=== PATIENT | male | born 1965 | race African-American/Black ===

== ENCOUNTER 2020-05-08 14:39 | Observation (INO) ==
[2020-05-08 15:16] LABS: Basophils % 0.3 % (0.0-0.8); Eosinophils # 0.3 10*3/uL (0.0-0.87); Eosinophils % 1.9 % (0.00-10.9); Hematocrit 39.3 VOL% (42.0-52.0); Hemoglobin 13.4 GM/DL (14.0-18.0); Immature Granulocytes % 0.4 %; Immature Granulocytes Absolute 0.06 #; Lymphocytes # 3.8 10*3/uL (1.4-4.0); Lymphocytes % 24.3 % (21.2-54.2); Mean Corpuscular HGB Conc 34.1 GM/DL (32-36); Mean Corpuscular Volume 97.3 FL (87-102); Mean Platelet Volume 10.4 FL (9.6-12.0); Monocytes % 6.3 % (1.7-12.7); Neutrophils % 66.8 % (38.7-73.9); Platelet Count 251 T/CUMM (130-400); Red Blood Count 4.04 MC/CUMM (3.8-5.5); Red Cell Distribution Width 12.1 % (9.3-17.3); White Blood Count 15.8 T/CUMM (4-12)
[2020-05-08 15:28] LABS: Albumin 3.7 G/DL (3.4-5.0); Bilirubin,Total 0.6 MG/DL (0.2-1.0); Calcium 9.3 MG/DL (8.5-10.1); Osmolality,Calculated 276.7 MOS/KG (273-304); Total Protein 7.1 G/DL (6.4-8.3)
[2020-05-08] MEDS ORDERED: ASPIRIN 325 MG TABLET PO STA (16:41)
[2020-05-08] MEDS ORDERED: METOPROLOL TARTRATE 25 MG TABLET PO STA (16:41)
[2020-05-08] MEDS ORDERED: ENOXAPARIN 100 MG/ML SYRINGE SUBCUT STA (16:41)
[2020-05-08] MEDS ORDERED: NITROGLYCERIN SL 0.4 MG TABLET SL PRN (16:41)
[2020-05-08] MEDS ORDERED: MAGNESIUM SULF RIDER 2 GM in PREMIX 1 EACH IV PRN (16:43)
[2020-05-08] MEDS ORDERED: MAGNESIUM SULF RIDER 4 GM in PREMIX 1 EACH IV PRN (16:43)
[2020-05-08] MEDS ORDERED: ONDANSETRON 4 MG/2 ML VIAL IV PRN (16:43)
[2020-05-08] MEDS ORDERED: ENOXAPARIN 30 MG/0.3 ML SYRINGE ONE (16:55)
[2020-05-08] MEDS ORDERED: MORPHINE 4 MG/1 ML VIAL IV PRN (21:12)
[2020-05-08] MEDS ORDERED: MELATONIN 3 MG TABLET PO PRN (21:13)
[2020-05-08] MEDS ORDERED: ATORVASTATIN 20 MG TABLET PO SCH (22:01)
[2020-05-08] MEDS ORDERED: GLUCAGON 1 MG VIAL IM PRN (22:40)
[2020-05-08] MEDS ORDERED: DEXTROSE 50% 25 GM/50 ML VIAL IV PRN (22:40)
[2020-05-08] MEDS ORDERED: PANTOPRAZOLE 40 MG TABLET PO ONE (22:41)
[2020-05-08] MEDS ORDERED: ALUMINUM/MAGNES/SIMETH MAX STR 30 ML UDCUP PO PRN (22:42)
[2020-05-08] MEDS: GABAPENTIN 100 MG CAPSULE PO SCH (22:50)
[2020-05-08] MEDS ORDERED: SODIUM CHLORIDE 0.9% 1,000 ML IV SCH (23:00)
[2020-05-09] MEDS: METOPROLOL TARTRATE 25 MG TABLET PO SCH ×3 (06:05→20:59)
[2020-05-09] MEDS ORDERED: ENOXAPARIN 60 MG/0.6 ML SYRINGE SUBCUT ONE (07:00)
[2020-05-09] MEDS: INSULIN REGULAR 100 UNIT/ML SUBCUT SCH ×4 (08:19→21:10)
[2020-05-09] MEDS ORDERED: ASPIRIN CHEW 81 MG TABLET PO SCH (09:00)
[2020-05-09] MEDS: GABAPENTIN 100 MG CAPSULE PO SCH ×4 (11:33→21:34)
[2020-05-09] MEDS: PANTOPRAZOLE 40 MG TABLET PO SCH (11:57)
[2020-05-09] MEDS ORDERED: DIAZEPAM 5 MG TABLET PO ONE (12:06)
[2020-05-09] MEDS ORDERED: diphenhydrAMINE CAP 25 MG CAPSULE PO ONE (12:06)
[2020-05-09] MEDS ORDERED: LIDOCAINE 1% 20 ML VIAL ONE (12:51)
[2020-05-09] MEDS ORDERED: HEPARIN/NACL 0.9% 2 UNITS/ML 1,000 ML IV ONE (12:51)
[2020-05-09] MEDS ORDERED: MIDAZOLAM 2 MG/2 ML VIAL ONE ×2 (13:01→13:44)
[2020-05-09] MEDS ORDERED: fentaNYL 100 MCG/2 ML VIAL ONE (13:01)
[2020-05-09] MEDS ORDERED: HEPARIN/NACL 0.9% 2 UNITS/ML 500 ML IV ONE (13:04)
[2020-05-09] MEDS ORDERED: ENOXAPARIN 60 MG/0.6 ML SYRINGE ONE (13:26)
[2020-05-09] MEDS ORDERED: TICAGRELOR 90 MG TABLET ONE (13:28)
[2020-05-09] MEDS ORDERED: NITROGLYCERIN DRIP 50 MG/250 ML BOTTLE IV ONE (13:29)
[2020-05-09] MEDS ORDERED: SODIUM CHLORIDE 0.9% 1,000 ML IV SCH (15:00)
[2020-05-09] MEDS: TICAGRELOR 90 MG TABLET PO SCH (20:59)
[2020-05-09] MEDS ORDERED: NICOTINE 14 MG/24 HR PATCH TRANSDERM PRN (21:18)
[2020-05-09] MEDS ORDERED: ALPRAZolam 0.25 MG TABLET PO ONE (21:28)
[2020-05-09] MEDS ORDERED: LABETALOL 20 MG/4 ML SYRINGE IV PRN (22:00)
[2020-05-10 07:46] LABS: Basophils % 0.2 % (0.0-0.8); Eosinophils # 0.1 10*3/uL (0.0-0.87); Hematocrit 39.3 VOL% (42.0-52.0); Hemoglobin 13.6 GM/DL (14.0-18.0); Immature Granulocytes % 0.4 %; Immature Granulocytes Absolute 0.05 #; Lymphocytes # 2.5 10*3/uL (1.4-4.0); Lymphocytes % 18.2 % (21.2-54.2); Mean Corpuscular HGB Conc 34.6 GM/DL (32-36); Mean Platelet Volume 10.4 FL (9.6-12.0); Monocytes % 7.6 % (1.7-12.7); Neutrophils % 72.6 % (38.7-73.9); Platelet Count 236 T/CUMM (130-400); Red Blood Count 4.05 MC/CUMM (3.8-5.5); Red Cell Distribution Width 12.1 % (9.3-17.3); White Blood Count 13.9 T/CUMM (4-12)
[2020-05-10] MEDS: TICAGRELOR 90 MG TABLET PO SCH (08:02)
[2020-05-10 08:03] VITALS: BP 151/82
[2020-05-10 08:03] LABS: Calcium 9.1 MG/DL (8.5-10.1); Osmolality,Calculated 271.8 MOS/KG (273-304)
[2020-05-10] MEDS: METOPROLOL TARTRATE 25 MG TABLET PO SCH (08:03)
[2020-05-10] MEDS: PANTOPRAZOLE 40 MG TABLET PO SCH (08:03)
[2020-05-10] MEDS: GABAPENTIN 100 MG CAPSULE PO SCH (08:03)
[2020-05-10] MEDS: INSULIN REGULAR 100 UNIT/ML SUBCUT SCH (08:07)
[2020-05-10 08:18] LABS: Troponin I 0.243 NG/ML (0.00-0.045)
[2020-05-10] MEDS ORDERED: ASPIRIN EC 81 MG TABLET PO SCH (09:00)
[2020-05-10] MEDS ORDERED: ATORVASTATIN 40 MG TABLET PO SCH ×2 (09:00)
== END 2020-05-10 08:53 | disposition home or self-care (01) ==
LOC: N.EDINP 14:39 → N.ED 14:39 → N.EDINP 17:43 → N.TELEN 17:45
PROVIDERS: ADMIT Internal Medicine Cardiovascular Disease; ATTEND Internal Medicine Cardiovascular Disease
PROC: CLCCHCL (ICD-10-PCS; 2020-05-09 13:45)